=== PATIENT | female | born 1985 | race Caucasian/White ===

== ENCOUNTER 2017-03-23 11:29 | Emergency (ER) | payer OTHER ==
[~2017-03-23 11:29] MED LIST: ALPRAZOLAM PO; ATIVAN PO; CYMBALTA PO; DICLOFENAC; HYDROCODON-ACE1 EACH PO; LORTAB 10-5001 EACH; LORTAB 10/500 T1 TAB PO; PAXIL PO; PHENERGAN PO; PREDNISONE PO; ROBAXIN
[2017-03-23] MEDS ORDERED: NO MEDICATIONS (11:32)
[2017-03-23 12:43] LABS: URINE SOURCE CLEAN CATCH
[2017-03-23 12:46] LABS: URINE APPEARANCE CLEAR; URINE BILIRUBIN NEG (NEG); URINE BLOOD NEG (NEG); URINE COLOR YELLOW; URINE GLUCOSE NEG (NORM); URINE KETONE NEG (NEG); URINE LEUKOCYTE ESTERASE TRACE (NEG); URINE NITRATE NEG (NEG); URINE PH 5.5 (5-8); URINE PROTEIN NEG (NEG); URINE SPECIFIC GRAVITY <=1.005 (1.003-1.035); URINE UROBILINOGEN 0.2 MG/DL (NORM)
[2017-03-23 12:53] LABS: MICRO INDICATED? YES
[2017-03-23 12:54] LABS: CULTURE INDICATED? YES; URINE BACTERIA 1+ (NEG); URINE RBC 0-2 /[HPF] (0-2); URINE SQUAMOUS EPITHELIAL CELL OCCAS /[HPF]; URINE WBC 0-2 /[HPF] (0-5)
[2017-03-23 13:05] LABS: CALCIUM SERUM 9.4 mg/dL (8.4-10.2); CREATININE SERUM 0.5 mg/dL (0.6-1.4); GLOM FILT RATE Estimated 130.8 mL/min (>60); POTASSIUM 3.5 mmol/L (3.5-5.1)
== END 2017-03-23 12:55 | disposition home or self-care (01) ==
LOC: SED 11:29
PROVIDERS: Emergency Medicine
DX: R11.2 Nausea with vomiting, unspecified (principal); F41.9 Anxiety disorder, unspecified; F17.200 Nicotine dependence, unspecified, uncomplicated
CPT/HCPCS: 36415; 80048; 81003; 84703; 87086; 96361; 96374; 96375; 99284; J1885; J2765